=== PATIENT | female | born 1935 | race Caucasian/White ===

== ENCOUNTER 2022-10-27 14:10 | Emergency (ER) | payer MEDICARE ==
[~2022-10-27] VITALS: Ht 167.6 cm; Wt 64.0 kg
[2022-10-27 14:25] VITALS: BP 140/58; PULSE 74; RESP 16; TEMP 98.3; O2SAT 97
[2022-10-27 14:58] LABS: HEMATOCRIT. 39.1 % (36.0-48.0); HEMOGLOBIN. 13.2 g/dL (12.0-16.0); LYMPHOCYTES % 29.6 % (20.0-50.0); MEAN CORPUSCULAR HEMOGLOBIN 28.5 pg (28.0-32.0); MEAN CORPUSCULAR HGB CONC 33.7 g/dL (31.0-37.0); MEAN CORPUSCULAR VOLUME 84.3 fL (81.0-99.0); MEAN PLATELET VOLUME 7.9 fl (7.4-10.4); MONOCYTES % 8.8 % (2.0-8.0); NEUTROPHILS % 59.6 % (40.0-76.0); PLATELET 328 x1000/uL (130-400); RED BLOOD CELL COUNT 4.64 mill/uL (4.2-5.4); RED CELL DISTRIBUTION WIDTH 13.9 % (11.6-14.6); WHITE BLOOD COUNT 7.8 x1000/uL (4.5-11.0)
[2022-10-27 15:09] LABS: PROTHROMBIN TIME 10.5 sec (9.6-11.0)
[2022-10-27 15:23] LABS: CHLORIDE 113 mEq/L (98-107); INDEX HEMOLYSI 1 (1-3); INDEX ICTERIC 1 (1-4); INDEX LIPEMIC 1 (1-3); POTASSIUM 3.5 mEq/L (3.5-5.1); SODIUM 138 mEq/L (136-145)
[2022-10-27 15:40] LABS: ALANINE AMINOTRANSFERASE 17 IU/L (13-61); ALBUMIN 3.2 g/dL (3.4-5.0); ASPARTATE AMINOTRANSFERASE 18 IU/L (15-37); BILIRUBIN TOTAL 0.5 mg/dL (0.1-1.0); CALCIUM 8.9 mg/dL (8.5-10.1); CARBON DIOXIDE 24 mEq/L (21-32); CREATININE 0.7 mg/dL (0.6-1.3); GLUCOSE 87 mg/dL (70-105); NT PRO B-TYPE NATRIURETIC PEP 243 pg/mL (5-125); PROTEIN TOTAL 6.3 g/dL (6.0-8.3); TROPONIN I HIGH SENSITIVITY 8 ng/L (<54); UREA NITROGEN BLOOD 23 mg/dL (7-21)
[2022-10-27] MEDS ORDERED: MECLIZINE 25MG TABLET PO ONE (17:00)
[2022-10-27] MEDS ORDERED: MECLIZINE 12.5MG TABLET PO NR (17:30)
[2022-10-27] MEDS ORDERED: NYST15CR33 TP (18:53)
== END 2022-10-27 18:53 | disposition home or self-care (01) ==
LOC: ER 14:30
DX: F41.9 Anxiety disorder, unspecified (principal); R42 Dizziness and giddiness
CPT/HCPCS: 99285; 71045; 80053; 83880; 85025; 85610; 84484; 36415; 93005; J8597